=== PATIENT | female | born 1985 | race Native Hawaiian/Other Pacific Islander ===

== ENCOUNTER 2017-10-15 04:19 | Emergency (ER) | payer BC ==
[~2017-10-15] VITALS: Ht 160 cm; Wt 53.5 kg
--- NOTE | 2017-10-15 04:36 | NUR ---
Client reports ear pain X 4 days without it getting better. No object seen with a light from casual observing. The client reports pain 5/10 radiating down her neck and to the top of her head. Allergies noted on the chart, not taking medications including tylenol and ibuprofen.
[2017-10-15 05:01] VITALS: BP 85/55
== END 2017-10-15 05:02 | disposition home or self-care (01) ==
LOC: ER 04:19
DX: H71.92 Unspecified cholesteatoma, left ear (principal); Z88.1 Allergy status to other antibiotic agents; Z91.041 Radiographic dye allergy status
CPT/HCPCS: 99283; A4663